=== PATIENT | male | born 1970 | race Caucasian/White ===

== ENCOUNTER 2020-10-17 09:57 | Observation (INO) ==
[2020-10-17] MEDS ORDERED: PROMETHAZINE INJ 25 MG in SODIUM CHLORIDE 0.9% 50 ML IV STA (12:19)
[2020-10-17] MEDS ORDERED: SODIUM CHLORIDE 0.9% 1,000 ML IV STA ×2 (12:19→16:28)
[2020-10-17 12:37] LABS: Basophils % 0.6 % (0.0-0.8); Eosinophils # 0.2 10*3/uL (0.0-0.87); Eosinophils % 2.8 % (0.00-10.9); Hematocrit 45.5 VOL% (42.0-52.0); Hemoglobin 15.5 GM/DL (14.0-18.0); Immature Granulocytes % 0.3 %; Immature Granulocytes Absolute 0.02 #; Lymphocytes # 1.1 10*3/uL (1.4-4.0); Lymphocytes % 15.5 % (21.2-54.2); Mean Corpuscular HGB Conc 34.1 GM/DL (32-36); Mean Corpuscular Volume 87.8 FL (87-102); Mean Platelet Volume 10.3 FL (9.6-12.0); Monocytes % 8.1 % (1.7-12.7); Neutrophils % 72.7 % (38.7-73.9); Platelet Count 190 T/CUMM (130-400); Red Blood Count 5.18 MC/CUMM (3.8-5.5); Red Cell Distribution Width 13.6 % (9.3-17.3); White Blood Count 6.8 T/CUMM (4-12)
[2020-10-17 12:43] LABS: Bilirubin,Urine Negative (Negative); Blood, Urine Negative (Negative); Glucose,Urine (UA) Negative (Negative); Hyaline Casts,Urine 1 /LPF (0-3); Ketones,Urine 5 mg/dL (Negative); Mucus,Urine Occasional /LPF (Occasional); Nitrite,Urine Negative (Negative); Protein,Urine Negative; RBC,Urine 1 /HPF (0-4); Squamous Epithelial Cell,Urine Occasional /HPF (0-10); Urine Appearance CLEAR (Clear); Urine Color Yellow (Yellow); Urine Specific Gravity 1.029 (1.001-1.035)
[2020-10-17 12:59] LABS: Albumin 3.6 G/DL (3.4-5.0); Bilirubin,Total 0.8 MG/DL (0.2-1.0); Calcium 8.7 MG/DL (8.5-10.1); Osmolality,Calculated 276.7 MOS/KG (273-304); Potassium 4.3 MMOL/L (3.5-5.1); Total Protein 7.2 G/DL (6.4-8.2)
[2020-10-17] MEDS ORDERED: ACETAMINOPHEN 325 MG TABLET PO PRN (19:28)
[2020-10-17] MEDS ORDERED: PROMETHAZINE 25 MG/1 ML VIAL IM PRN (19:28)
[2020-10-17] MEDS ORDERED: GLUCAGON 1 MG VIAL IM PRN (19:28)
[2020-10-17] MEDS ORDERED: ONDANSETRON 4 MG/2 ML VIAL IV PRN (19:28)
[2020-10-17] MEDS ORDERED: DEXTROSE 50% 25 GM/50 ML VIAL IV PRN (19:28)
[2020-10-17] MEDS: SODIUM CHLORIDE 0.9% 1,000 ML IV SCH (20:50)
[2020-10-17] MEDS: ROSUVASTATIN 10 MG TABLET PO SCH (20:50)
[2020-10-17] MEDS: DOCUSATE SODIUM 100 MG CAPSULE PO SCH (20:50)
[2020-10-18] MEDS: SODIUM CHLORIDE 0.9% 1,000 ML IV SCH ×3 (03:41→20:55)
[2020-10-18 05:46] LABS: Basophils % 0.6 % (0.0-0.8); Eosinophils # 0.6 10*3/uL (0.0-0.87); Eosinophils % 11.8 % (0.00-10.9); Hematocrit 38.5 VOL% (42.0-52.0); Immature Granulocytes % 0.4 %; Immature Granulocytes Absolute 0.02 #; Lymphocytes # 1.6 10*3/uL (1.4-4.0); Lymphocytes % 31.7 % (21.2-54.2); Mean Corpuscular Volume 89.5 FL (87-102); Mean Platelet Volume 10.5 FL (9.6-12.0); Monocytes % 13.7 % (1.7-12.7); Neutrophils % 41.8 % (38.7-73.9); Platelet Count 168 T/CUMM (130-400); Red Cell Distribution Width 13.7 % (9.3-17.3); White Blood Count 5.2 T/CUMM (4-12)
[2020-10-18 06:03] LABS: Osmolality,Calculated 283.1 MOS/KG (273-304); Potassium 4.1 MMOL/L (3.5-5.1)
[2020-10-18 06:12] LABS: Hemoglobin 13.1 GM/DL (14.0-18.0)
[2020-10-18 06:23] LABS: Eosinophils 13 % (0-10); Lymphocytes 31 % (20-55); Platelet Estimate Adequate; Segmented Neutrophils 49 % (50-85); Total Cells Counted 100
[2020-10-18] MEDS: lisinopriL 5 MG TABLET PO SCH ×2 (09:19→09:44)
[2020-10-18] MEDS: PANTOPRAZOLE 40 MG TABLET PO SCH ×2 (09:19→09:44)
[2020-10-18] MEDS: DOCUSATE SODIUM 100 MG CAPSULE PO SCH ×3 (09:19→21:00)
[2020-10-18] MEDS: CITALOPRAM 20 MG TABLET PO SCH ×2 (09:19→09:44)
[2020-10-18] MEDS: CHOLECALCIFEROL 1,000 UNIT TABLET PO SCH ×2 (09:19→09:44)
[2020-10-18] MEDS: allopurinoL 300 MG TABLET PO SCH ×2 (09:19→09:44)
[2020-10-18] MEDS ORDERED: INDOCYANINE GREEN 25 MG VIAL IV ONE (10:41)
[2020-10-18] MEDS ORDERED: MIDAZOLAM 2 MG/2 ML VIAL ONE (11:19)
[2020-10-18] MEDS ORDERED: fentaNYL 100 MCG/2 ML VIAL ONE ×2 (11:19→11:20)
[2020-10-18] MEDS ORDERED: BUPIVACAINE MPF 0.25% 30 ML VIAL ONE (11:40)
[2020-10-18] MEDS ORDERED: TISSUE ADHESIVE 1 EACH APPLICATOR TOP ONE (11:40)
[2020-10-18] MEDS ORDERED: LIDOCAINE 1%/EPI INJ 20 ML VIAL ONE (11:41)
[2020-10-18] MEDS: LACTATED RINGERS 1,000 ML IV SCH ×3 (11:50→14:04)
[2020-10-18] MEDS ORDERED: ONDANSETRON 4 MG/2 ML VIAL ONE (12:50)
[2020-10-18] MEDS ORDERED: propofoL 200 MG/20 ML VIAL IV ONE (12:50)
[2020-10-18] MEDS ORDERED: GLYCOPYRROLATE 0.4 MG/2 ML VIAL ONE (12:50)
[2020-10-18] MEDS ORDERED: ACETAMINOPHEN INJ 1,000 MG/100 ML VIAL IV ONE (12:50)
[2020-10-18] MEDS ORDERED: LIDOCAINE 2% 5 ML VIAL ONE (12:50)
[2020-10-18] MEDS ORDERED: KETOROLAC 30 MG/1 ML VIAL ONE (12:50)
[2020-10-18] MEDS ORDERED: PHENYLEPHRINE 1 MG/10 ML SYRINGE IV ONE (12:50)
[2020-10-18] MEDS ORDERED: NEOSTIGMINE 10 MG/10 ML VIAL ONE (12:50)
[2020-10-18] MEDS ORDERED: DEXAMETHASONE 4 MG/1 ML VIAL ONE (12:50)
[2020-10-18] MEDS ORDERED: ROCURONIUM 50 MG/5 ML VIAL IV ONE (12:50)
[2020-10-18] MEDS ORDERED: SEVOFLURANE 1 UNIT/15 MINUTE INH ONE (12:53)
[2020-10-18] MEDS ORDERED: ONDANSETRON 4 MG/2 ML VIAL IV PRN (13:30)
[2020-10-18] MEDS ORDERED: HYDROmorphone 2 MG/1 ML VIAL IV PRN ×4 (13:30→14:39)
[2020-10-18] MEDS: ROSUVASTATIN 10 MG TABLET PO SCH (20:59)
[2020-10-19] MEDS: SODIUM CHLORIDE 0.9% 1,000 ML IV SCH ×2 (04:14→12:47)
[2020-10-19] MEDS: PANTOPRAZOLE 40 MG TABLET PO SCH (08:59)
[2020-10-19] MEDS: CITALOPRAM 20 MG TABLET PO SCH (08:59)
[2020-10-19] MEDS: CHOLECALCIFEROL 1,000 UNIT TABLET PO SCH (08:59)
[2020-10-19] MEDS: DOCUSATE SODIUM 100 MG CAPSULE PO SCH (08:59)
[2020-10-19] MEDS: allopurinoL 300 MG TABLET PO SCH (08:59)
[2020-10-19] MEDS: lisinopriL 5 MG TABLET PO SCH (09:00)
[2020-10-19 11:56] VITALS: BP 99/56
== END 2020-10-19 13:20 | disposition home or self-care (01) ==
LOC: N.ED 09:57 → N.EDINP 09:57 → N.3E 18:29
PROVIDERS: ADMIT Family Medicine; ATTEND Family Medicine